=== PATIENT | female | born 1995 | race Caucasian/White ===

== ENCOUNTER 2021-02-05 12:26 | Emergency (ER) | payer BC ==
[~2021-02-05] VITALS: Ht 180.3 cm; Wt 81.6 kg
--- NOTE | 2021-02-05 13:30 | NUR ---
BIB FAMILY C/O DIZZINESS/NAUSEA S/P SYNCOPE AT HOME 1 HOUR AGO. VOMITTED 20 MINS AGO AT THE WAITING ROOM. PT AAOX4, RR EVEN & UNLABORED. DENIES CP, SOB AT THIS TIME. AWAITING EVAL BY ERMD. WILL CONT TO MONITOR.
[2021-02-05] MEDS ORDERED: diphenhydrAMINE HCL 50 MG/ML VIAL ONE (15:25)
[2021-02-05] MEDS ORDERED: PROCHLORPERAZINE EDISYLATE 10 MG/2 ML VIAL ONE (15:26)
[2021-02-05] MEDS ORDERED: PROCHLORPERAZINE EDISYLATE 10 MG/2 ML VIAL IVP ONE (15:30)
[2021-02-05] MEDS ORDERED: diphenhydrAMINE HCL 50 MG/ML VIAL IV ONE (15:30)
[2021-02-05] MEDS ORDERED: IV NS 0.9% 1,000 ML BAG IV ONE (15:30)
[2021-02-05 15:39] LABS: BASOPHILS % (AUTO) 0.3 % (0.0-2.0); HEMATOCRIT 43 % (33-45); HEMOGLOBIN 14.6 g/dL (11.5-14.8); MEAN CORPUSCULAR HGB CONC 34 g/dl (31.0-36.0); MEAN CORPUSCULAR VOLUME 90 fL (82-100); MONOCYTES # (AUTO) 0.4 K/uL (0.1-1.30); MONOCYTES % (AUTO) 5.5 % (2.0-12.0); NEUTROPHILS % (AUTO) 80.2 % (43.0-81.0); PLATELET COUNT (AUTO) 309 K/uL (150-450); RED BLOOD CELL COUNT(AUTO) 4.81 MIL/uL (4.0-5.2); WHITE BLOOD COUNT (AUTO) 7.5 K/uL (4.3-11.0)
[2021-02-05] MEDS ORDERED: CARBAMAZEPINE 200 MG TABLET ONE (15:41)
[2021-02-05] MEDS ORDERED: LORAZEPAM INJ 2 MG/ML VIAL ONE (15:45)
--- NOTE | 2021-02-05 15:45 | NUR ---
MEDICATED PER ERMD ORDER, PT AALIYAH WELL.
[2021-02-05 15:47] LABS: CALCIUM, SERUM 8.6 mg/dL (8.5-10.1); CREATININE 0.9 mg/dL (0.6-1.3); POTASSIUM 3.8 mmol/L (3.5-5.1)
--- NOTE | 2021-02-05 15:53 | NUR ---
PT HAVING A SEIZURE, MEDICATED WITH 2MG OF ATIVAN PER ERMD ORDER, PT AALIYAH WELL. FAMILY AT BS & WILL CONT TO MONITOR.
[2021-02-05] MEDS ORDERED: CARBAMAZEPINE 200 MG TABLET PO ONE (16:00)
[2021-02-05] MEDS ORDERED: LORAZEPAM INJ 2 MG/ML VIAL IV ONE (16:00)
--- NOTE | 2021-02-05 16:03 | NUR ---
PT TO CT VIA [facility].
--- NOTE | 2021-02-05 17:32 | NUR ---
PT ASLEEP, EASILY AWAKEN BY VERBAL STIMULI & WILL GO BACK TO SLEEP. DENIES CP, SOB, DIZZINESS, N/V AT THIS TIME. WILL CONT TO MONITOR. FAMILY AT BS.
--- NOTE | 2021-02-05 20:17 | NUR ---
Patient discharged to home in stable condition. Written and verbal after care instructions given. Patient verbalizes understanding of instruction.
--- NOTE | 2021-02-05 20:17 | NUR ---
Patient is alert and oriented x4. Denies pain.
--- NOTE | 2021-02-05 20:17 | NUR ---
IV removed. Catheter intact and site benign. Pressure and 4x4 applied to site. No bleeding noted.
--- NOTE | 2021-02-05 20:17 | NUR ---
Patient is ambulatory with a steady gait.
[2021-02-05 20:18] VITALS: BP 125/70
--- NOTE | 2021-02-05 20:18 | NUR ---
Patient is taken home by friends and family.
== END 2021-02-05 20:18 | disposition home or self-care (01) ==
LOC: ER 12:34
DX: G40.909 Epilepsy, unspecified, not intractable, without status epilepticus (principal); R55 Syncope and collapse
CPT/HCPCS: 36415; 70450; 80048; 80156; 84702; 85025; 93005; 96361; 96374; 96375; 99285; J0780; J1200; J2060; J7030